=== PATIENT | male | born 1965 | race Caucasian/White ===

== ENCOUNTER 2017-12-29 11:38 | Emergency (ER) | payer OTHER ==
[~2017-12-29] VITALS: Ht 177.8 cm; Wt 83.9 kg
[~2017-12-29 11:38] MED LIST: FLORINEF ACETA0.1 MG PO; HYDROCORTISONE5 MG PO; KLONOPIN0.5 MG PO; NEXIUM40 MG PO; RESTORIL15 MG PO; ROSUVASTATIN CA10 MG PO
[2017-12-29 11:56] LABS: ABSOLUTE BASOPHILS 0.1 thou/uL (0.0-0.2); ABSOLUTE EOSINOPHILS 0.1 thou/uL (0.0-0.7); ABSOLUTE LYMPHOCYTES 1.7 thou/uL (0.8-5.3); ABSOLUTE MONOCYTES 0.8 thou/uL (0.0-1.2); BASOPHILS 0.9 %; EOSINOPHILS 0.9 %; HEMATOCRIT 44.3 % (42.0-52.0); HEMOGLOBIN 15.2 gm/dL (14.0-18.0); LYMPHOCYTES 19.2 %; MCH 30.8 pg (26.0-34.0); MCHC 34.3 g/dL (28.0-37.0); MCV 89.8 fL (80.0-100.0); MONOCYTES 9.5 %; MPV 9.3 fl. (7.2-11.1); NUCLEATED RBCS 0 /100WBC; PLATELET COUNT* 174 thou/uL (150-400); POLYS 69.5 %; RBC 4.94 mil/uL (4.50-6.00); RDW-CV 13.4 % (10.5-14.5); WBC 8.6 thou/uL (4.0-11.0)
[2017-12-29 12:09] LABS: ANION GAP 7 mmol/L (7-16); BUN 14 mg/dL (7-18); CHLORIDE 102 mmol/L (98-107); CO2 30 mmol/L (21-32); CREATININE 1.1 mg/dL (0.6-1.3); GLUCOSE 71 mg/dL (70-99); POTASSIUM 4.1 mmol/L (3.5-5.1); SODIUM 139 mmol/L (136-145)
[2017-12-29 12:20] LABS: ALBUMIN 4.1 g/dL (3.4-5.0); ALKALINE PHOSPHATASE 48 U/L (46-116); LIPASE 154 U/L (73-393); MAGNESIUM 1.9 mg/dL (1.8-2.4); NT-PRO BRAIN NAT PEPTIDE 10 pg/mL (<300); SGOT 27 U/L (15-37); SGPT 31 U/L (30-65); TOTAL BILIRUBIN 0.6 mg/dL (<0.1-1.0); TOTAL PROTEIN 7.5 g/dL (6.4-8.2); TROPONIN-I LEVEL <0.06 ng/mL (<0.06)
[2017-12-29] MEDS ORDERED: HYDROCODONE-AP1 EAC6 PO (14:33)
[2017-12-29 14:47] VITALS: BP 107/71
--- NOTE | 2017-12-29 16:01 | EKG ---
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: : 1965 Requested By: Nitish Martell Order Number: [id number] MD: Timothy Sánchez Measurements Intervals [place] Rate: 86 P: 77 ID: 132 QRS: 29 QRSD: 99 T: 11 QT: 357 QTc: 427 Interpretive Statements Sinus rhythm Probable left atrial enlargement Low voltage, precordial leads Compared to ECG 12/02/2016 21:01:43 ST (T wave) deviation no longer present Electronically Signed On 12-29-2017 16:01:16 [employer]CH[employer]IC by Timothy Sánchez [email or web address] <ELECTRONICALLY SIGNED> By: Timothy Sánchez MD, [facility] 12/29/17 160 1142 114 Timothy Sánchez MD, [facility] /EPI
--- NOTE | 2017-12-30 09:58 | EKG ---
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 : 1965 Requested By: Nitish Martell Order Number: [id number] MD: Carlos Lainez Measurements Intervals [place] Rate: 65 P: 68 [place]: 138 QRS: 18 QRSD: 102 T: 19 QT: 389 QTc: 405 Interpretive Statements Sinus rhythm Low voltage, precordial leads Compared to ECG 12/29/2017 11:42:13 No significant changes Electronically Signed On 12-30-2017 9:58:36 [employer] by Carlos Lainez [email or web address] <ELECTRONICALLY SIGNED> By: Carlos Lainez MD, [facility] 12/30/17 [id number] Carlos Lainez MD, FAC /EPI
== END 2017-12-29 14:47 | disposition home or self-care (01) ==
LOC: M.ERS 11:38
PROVIDERS: Emergency Medicine Emergency Medical Services
DX: R07.89 Other chest pain (principal); F41.9 Anxiety disorder, unspecified; E78.5 Hyperlipidemia, unspecified; Z85.038 Personal history of other malignant neoplasm of large intestine

== ENCOUNTER → 2018-07-29 | Outpatient (CLI) | payer OTHER ==
[~2018-07-29] MED LIST changes: +HYDROCODONE-AP1 EAC6 PO
== END ==
LOC: M.RAD 07-10 11:32
DX: N63.22 Unspecified lump in the left breast, upper inner quadrant (principal)